=== PATIENT | male | born 1965 | race Caucasian/White ===

== ENCOUNTER 2016-08-13 05:35 | Outpatient (CLI) | payer BC ==
[~2016-08-13] VITALS: Ht 180.3 cm; Wt 74.8 kg
[~2016-08-13 05:35] MED LIST: PARO25TA15 PO
--- OUTSIDE RECORDS SUMMARY | 2016-08-13 05:38 | XMS REPORT | Continuity of Care Document ---
Author Author [facility] Organization [facility] Address Unknown Phone Unavailable Allergies Active Description Code Type Severity Reaction Onset Reported/Identified Relationship to Patient Clinical Status Yes No Known Drug Allergies [id number] Drug Allergy Unknown N/ A 08/08/2015 Medications Problems Date Dx Coded Attending Type Code Diagnosis Diagnosed By 03/10/2010 Ot V25.8 08/09/2015 TINA MULLINS MD Ot Z01.818 08/09/2015 TINA MULLINS MD Ot Z12.11 08/09/2015 TINA MULLINS MD Ot Z80.0 08/10/2015 TINA MULLINS MD Ot D12.5 BENIGN NEOPLASM OF SIGMOID COLON 08/10/2015 TINA MULLINS MD Ot K57.30 DVRTCLOS OF LG INT W/O PERFORATION OR AB 08/10/2015 TINA MULLINS MD Ot Z12.11 ENCOUNTER FOR SCREENING FOR MALIGNANT NE 08/10/2015 TINA MULLINS MD Ot Z80.0 FAMILY HISTORY OF MALIGNANT NEOPLASM OF 08/13/2015 TINA MULLINS MD Ot D12.5 08/13/2015 TINA MULLINS MD Ot K57.30 08/13/2015 TINA MULLINS MD Ot Z12.11 08/13/2015 TINA MULLINS MD Ot Z80.0 08/26/2015 LILA FONTENOT MD, Ot K57.90 DVRTCLOS OF INTEST, PART UNSP, W/O PERF 08/26/2015 LILA FONTENOT MD Ot R10.32 LEFT LOWER QUADRANT PAIN 08/28/2015 LILA FONTENOT MD, Ot K57.90 08/28/2015 LILA FONTENOT MD, Ot R10.32 Procedures Results Encounters ACCT No. Visit Date/Time Discharge Status Pt. Type Provider Facility Loc./Unit Complaint [id number] 08/26/2015 05:14:00 2015 07:55:00 DIS Emergency LILA FONTENOT MD [facility] ER LT SIDE ABD PAIN [id number] 08/10/2015 09:06:00 2015 12:30:00 DIS Outpatient TINA MULLINS MD [facility] SDC SCREENING [id number] 08/08/2015 05:52:00 2015 13:49:00 DIS Outpatient TINA MULLINS MD [facility] PREOP [id number] 08/13/2016 05:35:00 ACT Outpatient TINA MULLINS MD [facility] PREOP HISTORY POLYPS [id number] 12/13/2009 12:30:00 Document Registration
[2016-08-13] MEDS ORDERED: PARO-49 PO (14:16)
== END 2016-08-13 14:19 ==
LOC: PREOP 05:35
PROVIDERS: ATTEND Internal Medicine
DX: Z01.818 Encounter for other preprocedural examination (principal); Z12.11 Encounter for screening for malignant neoplasm of colon; Z80.0 Family history of malignant neoplasm of digestive organs; Z86.010 Personal history of colon polyps

== ENCOUNTER 2016-08-15 07:10 | Day surgery (SDC) | payer BC ==
[~2016-08-15] VITALS: Ht 180.3 cm; Wt 74.8 kg
[~2016-08-15 07:10] MED LIST changes: +PARO-49 PO
--- OUTSIDE RECORDS SUMMARY | 2016-08-15 07:15 | XMS REPORT | Continuity of Care Document ---
Author Author [facility] Organization [facility] Address Unknown Phone Unavailable Allergies Active Description Code Type Severity Reaction Onset Reported/Identified Relationship to Patient Clinical Status Yes No Known Drug Allergies [id number] Drug Allergy Unknown N/ A 08/13/2016 Medications Problems Date Dx Coded Attending Type [...] MULLINS MD Ot Z80.0 08/26/2015 LILA FONTENOT MD Ot K57.90 DVRTCLOS OF INTEST, PART UNSP, W/O PERF 08/26/2015 LILA FONTENOT MD Ot R10.32 LEFT LOWER QUADRANT PAIN 08/28/2015 LILA FONTENOT MD Ot K57.90 08/28/2015 LILA FONTENOT MD Ot R10.32 08/14/2016 TINA MULLINS MD Ot Z01.818 ENCOUNTER FOR OTHER PREPROCEDURAL EXAMIN 08/14/2016 TINA MULLINS MD Ot Z12.11 ENCOUNTER FOR SCREENING FOR MALIGNANT NE 08/14/2016 TINA MULLINS MD Ot Z80.0 FAMILY HISTORY OF MALIGNANT NEOPLASM OF 08/14/2016 TINA MULLINS MD Ot Z86.010 PERSONAL HISTORY OF COLONIC POLYPS Procedures Results Encounters ACCT No. Visit Date/Time Discharge Status Pt. Type Provider Facility Loc./Unit Complaint [id number] 08/13/2016 05:35:00 2016 14:19:00 DIS Outpatient TINA MULLINS MD [facility] PREOP HISTORY POLYPS [id number] 08/26/2015 05:14:00 2015 07:55:00 DIS Emergency LILA FONTENOT MD [facility] ER LT SIDE ABD PAIN [id number] 08/10/2015 09:06:00 2015 12:30:00 DIS Outpatient TINA MULLINS MD [facility] SDC SCREENING [id number] 08/08/2015 05:52:00 2015 13:49:00 DIS Outpatient TINA MULLINS MD [facility] PREOP [id number] 08/15/2016 07:10:00 ACT Outpatient TINA MULLINS MD [facility] ENDO SCREENING/HISTORY OF POLYPS [id number] 12/13/2009 12:30:00 Document Registration
--- OUTSIDE RECORDS SUMMARY | 2016-08-15 07:15 | XMS REPORT | Continuity of Care Document ---
Author Author [facility] Organization [facility] Address Unknown Phone Unavailable Allergies Active Description Code Type Severity Reaction Onset Reported/Identified Relationship to Patient Clinical Status Yes No Known Drug Allergies [id number] Drug Allergy Unknown N/ A 08/13/2016 Medications [...] Status Pt. Type Provider Facility Loc./Unit Complaint [id number] 08/13/2016 05:35:00 2016 14:19:00 DIS Outpatient TINA MULLINS MD [facility] PREOP HISTORY POLYPS [id number] 08/26/2015 05:14:00 2015 07:55:00 DIS Emergency LILA FONTENOT MD [facility] ER LT SIDE ABD PAIN [id number] 08/10/2015 09:06:00 2015 12:30:00 DIS Outpatient TINA MULLINS MD [facility] SDC SCREENING [id number] 08/08/2015 05:52:00 2015 13:49:00 DIS Outpatient TINA MULLINS MD [facility] PREOP [id number] 08/15/2016 07:10:00 ACT Outpatient TINA MULLINS MD [facility] ENDO SCREENING/HISTORY OF POLYPS [id number] 12/13/2009 12:30:00 Document Registration
--- NOTE | 2016-08-15 07:18 | HISTORY AND PHYSICAL ---
DATE OF ADMISSION: 08/15/2016 DICTATING PHYSICIAN: Dr. Rodrigez Mr. Molina is a 52-year-old white male undergoing surveillance colonoscopy due to a past history of colon polyps and a family history for early colon cancer. His sister was diagnosed with colon cancer at age of 47 and unfortunately has rather advanced metastatic disease. Marcelo underwent colonoscopy one year ago and had 4 polyps removed, 2 of which were tubular adenomas, 1 removed from the hepatic flexure and the other one was removed from the distal sigmoid colon. Two hyperplastic polyps were removed; 1 from the distal sigmoid colon the other one from the rectum. Though he reports that he has been feeling well, he does voice, that evening prior to this colonoscopy and prior to his sister diagnosis, he did have a phobia about cancer as part of his generalized anxiety. He does not feel that he has been quite as well on Paxil CR generic, switched mandated by his insurance. He has not had any overt panic attacks, but does have more ruminations about cancerphobia aggravated by his sister's battles with her cancer. He has not had any overt panic attacks. PHYSICAL EXAMINATION: Reveals a white male, appears to be in no acute distress. His weight is up 2.8 pounds. I should add that he has noted no blood in his stool. He has had no abdominal pain or change in bowel habits. Blood pressure was 96/76. CHEST: Clear. CV: Revealed a regular rate and rhythm without murmur, S3 or S4. ABDOMEN: Soft, supple without masses, organomegaly or tenderness. EXTREMITIES: Reveal no cyanosis, clubbing, or edema. ASSESSMENT: 1. Due to a past history of adenomatous colonic polyps with family history for early colon cancer in first degree relative, his sister, he is set-up for repeat surveillance colonoscopy for prevention on 08/15/2016. Prep instructions with split dose W[employer]ins Prep kit were given. Questions were answered. 2. Generalized anxiety. If repeat colonoscopy is not enough to reassure him and he is still having cancerphobia issues, he is to call and I will advise increasing his Paxil CR from 25 mg to 40 mg. 3. Lastly, he does have a small verrucous nevus in the left nares, that was asymptomatic, the patient was reassured. Will see him back in 6 months. Job ID: [id number] Dictated Date: 07/23/2016 16:07:00 Ink Grinder Date: 07/24/2016 08:17:19/brenda
[2016-08-15] MEDS ORDERED: 1/2 NS IV SOLUTION 1,000 ML IV ONE (07:19)
[2016-08-15] MEDS ORDERED: 1/2 NS IV SOLUTION 1,000 ML IV STA (07:24)
[2016-08-15] MEDS ORDERED: NALOXONE 0.4 MG/ML 1 ML (NARCAN) VIAL IVP PRN (07:30)
[2016-08-15] MEDS ORDERED: MIDAZOLAM 2 MG/2 ML (VERSED) VIAL IVP PRN (07:30)
[2016-08-15] MEDS ORDERED: LIDOCAINE JELLY 2% (XYLOCAINE) 5 ML TUBE MM PRN (07:30)
[2016-08-15] MEDS ORDERED: FLUMAZENIL (ROMAZICON) 0.1 MG/ML 5 ML VIAL INJ PRN (07:30)
--- NOTE | 2016-08-15 07:41 | Pre-Op Note & Conscious Sedat ---
Pre-Operative Progress Note H&P Reviewed The H&P was reviewed, patient examined and no changes noted. Date H&P Reviewed: Aug 15, 2016 Time H&P Reviewed: 07:41 Conscious Sedation Pre-Proced ASA Class: 1 Airway Mallampati Classification: ([place] appropriate class) I. II. III, IV Lungs Heart ASA score ASA 1: a normal healthy patient ASA 2: a patient with a mild systemic disease (mid diabetes, controlled hypertension, obesity ASA 3: a patient with a severe systemic disease that limits activity (angina , COPD, prior Myocardial infarction) ASA 4: a patient with an incapacitating disease that is a constant threat to life (CHF, renal failure) ASA 5: a moribund patient not expected to survive 24 hrs. (ruptured aneurysm) ASA 6: a declared brain patient whose organs are being harvested. For emergent operations, add the letter E after the classification Grade 2 Sedation Plan: Analgesia, Amnesia, Plan communicated to team members, Discussed options with patient/fam, Discussed risks with patient/fam Note The patient is an appropriate candidate to undergo the planned procedure, sedation, and anesthesia. The patient immediately re-assessed prior to indication. TINA MULLINS MD Aug 15, 2016 07:41
[2016-08-15] MEDS ORDERED: fentaNYL INJECTION 100 MCG/2 ML AMP ONE (07:53)
[2016-08-15] MEDS ORDERED: LIDOCAINE JELLY 2% (XYLOCAINE) 5 ML TUBE ONE (07:53)
[2016-08-15] MEDS ORDERED: MIDAZOLAM 2 MG/2 ML (VERSED) VIAL ONE ×2 (07:53)
[2016-08-15] MEDS: fentaNYL INJECTION 100 MCG/2 ML AMP IVP PRN ×2 (07:55→08:10)
[2016-08-15 08:04] VITALS: BP 123/89
[2016-08-15] MEDS ORDERED: ONDANSETRON 4 MG/2 ML (SDV) Z0FRAN ONE (08:29)
[2016-08-15 09:00] VITALS: BP 101/70
[2016-08-15] MEDS ORDERED: ATROPINE INJ 0.4 MG/ML SDV IV ONE (09:00)
[2016-08-15 09:30] VITALS: BP 100/80
[2016-08-15 09:48] VITALS: BP 100/80
--- NOTE | 2016-08-15 11:24 | PROCEDURE REPORT ---
PROCEDURE PHYSICIAN: TINA MULLINS DATE OF PROCEDURE: 08/15/2016 COLONOSCOPY SUMMARY: INDICATION FOR THE PROCEDURE: History of colon polyps, family history of colon cancer, index case being his sister diagnosed in her 40s. PROCEDURE: The patient is placed in the left lateral decubitus position. The colonoscope was inserted in the rectum and under visualization advanced to the cecum. The cecum identified by the identification of the ileocecal valve and appendiceal orifice. Photographic documentation was obtained. Careful inspection was made as the colonoscope withdrawn. Quality of the prep was good. Prior to undergoing colonoscopy, digital rectal evaluation was performed. Anal sphincter tone was normal and the perianal reflex was intact. The prostate was unremarkable to digital inspection and was normal in size. No abnormalities were noted to digital inspection of the anal canal or distal rectal vault. The rectum was unremarkable. One diminutive proximal sigmoid colonic polyp was present; it was biopsied and ablated and submitted for histopathology. One diminutive 2 x 3 mm sessile polyp was present. at the hepatic flexure. It was biopsied and ablated, and submitted for histopathology. The remainder of the colonoscopy was unremarkable. ASSESSMENT: 2 diminutive polyps were removed today; one from the proximal sigmoid colon and one from the hepatic flexure. No other significant abnormalities were noted on today's colonoscopy to the cecum. We will wait on histopathology report before advocating consideration for future surveillance colonoscopy. Job ID: [id number] Dictated Date: 08/15/2016 10:19:42 Soil Checker Date: 08/15/2016 11:18:53 / raysa MO
== END 2016-08-15 09:53 | disposition home or self-care (01) ==
LOC: ENDO 07:10
PROVIDERS: ATTEND Internal Medicine
DX: Z12.11 Encounter for screening for malignant neoplasm of colon (principal); D12.3 Benign neoplasm of transverse colon; D12.5 Benign neoplasm of sigmoid colon; Z80.0 Family history of malignant neoplasm of digestive organs; Z86.010 Personal history of colon polyps
CPT/HCPCS: 88305

== ENCOUNTER 2018-01-29 08:03 | Day surgery (SDC) | payer BC ==
[~2018-01-29] VITALS: Ht 180.3 cm; Wt 79.4 kg
[2018-01-29] MEDS ORDERED: D5 LR IV SOLUTION 1,000 ML IV STA (08:18)
[2018-01-29] MEDS ORDERED: LIDOCAINE JELLY 2% (XYLOCAINE) 5 ML TUBE MM PRN (08:30)
[2018-01-29] MEDS ORDERED: MIDAZOLAM 2 MG/2 ML (VERSED) VIAL IVP ONE (08:30)
[2018-01-29] MEDS ORDERED: fentaNYL INJECTION 100 MCG/2 ML AMP IVP ONE (08:30)
[2018-01-29 08:37] VITALS: BP 108/90
[2018-01-29] MEDS ORDERED: ROSU10TA PO (08:40)
[2018-01-29] MEDS ORDERED: LIDOCAINE JELLY 2% (XYLOCAINE) 5 ML TUBE ONE (09:02)
[2018-01-29] MEDS ORDERED: fentaNYL INJECTION 100 MCG/2 ML AMP ONE ×2 (09:02)
[2018-01-29] MEDS ORDERED: MIDAZOLAM 2 MG/2 ML (VERSED) VIAL ONE ×3 (09:03→14:42)
--- NOTE | 2018-01-29 09:06 | Pre-Op Note & Conscious Sedat ---
Pre-Operative Progress Note H&P Reviewed The H&P was reviewed, patient examined and no changes noted. Date H&P Reviewed: Jan 29, 2018 Time H&P Reviewed: 08:32 Conscious Sedation Pre-Proced ASA Class: 2 Airway Mallampati Classification: ([place] appropriate class) I. II. III, IV Lungs Heart ASA score ASA 1: a normal healthy patient ASA 2: a patient with a mild systemic disease (mid diabetes, controlled hypertension, obesity ASA 3: a patient with a severe systemic disease that limits activity (angina , COPD, prior Myocardial infarction) ASA 4: a patient with an incapacitating disease that is a constant threat to life (CHF, renal failure) ASA 5: a moribund patient not expected to survive 24 hrs. (ruptured aneurysm) ASA 6: a declared brain patient whose organs are being harvested. For emergent operations, add the letter E after the classification Grade 2 Sedation Plan: Analgesia, Amnesia, Plan communicated to team members, Discussed options with patient/fam, Discussed risks with patient/fam Note The patient is an appropriate candidate to undergo the planned procedure, sedation, and anesthesia. The patient immediately re-assessed prior to indication. TINA MULLINS MD Jan 29, 2018 09:06
[2018-01-29 10:00] VITALS: BP 108/90
[2018-01-29 10:30] VITALS: BP 121/81
[2018-01-29 10:40] VITALS: BP 121/81
--- NOTE | 2018-01-29 19:30 | OPERATIVE REPORT ---
DATE OF SERVICE: COLONOSCOPY SUMMARY INDICATION FOR PROCEDURE: Surveillance colonoscopy due to past history of colon polyps and a family history for colon cancer, index case being his sister diagnosed at either 47 or 48 years of age. DESCRIPTION OF PROCEDURE: The patient was placed in left lateral decubitus position. Prior to having colonoscopy, a digital rectal evaluation was performed. Anal sphincter tone was normal. Perianal reflexes intact. Prostate is small in size, anodular and nontender to digital inspection. No abnormalities were noted on digital inspection of the anal canal or distal rectal vault. The colonoscope was then inserted into the rectum and under direct visualization advanced to cecum. Cecum was identified by identification of the ileocecal valve and cecal strap. Photographic documentation was obtained. A careful inspection was made as the colonoscope withdrawn. The patient tolerated the procedure well. FINDINGS: There was no evidence for internal or external hemorrhoids and the rectum was unremarkable. Several small sigmoid diverticula were present with no other sigmoid colonic abnormalities being noted. The descending colon, splenic flexure and transverse colon were unremarkable. One diminutive 3 mm sessile polyp was noted at the hepatic flexure. It was photographed and biopsied and ablated and submitted for histopathology. The ascending colon and cecum of the colon were unremarkable. ASSESSMENT: 1. Mild diverticular disease confined to the sigmoid colon was present. There was no evidence for diverticulitis. 2. One diminutive polyp was removed via hot forceps from the hepatic flexure with no subsequent blood loss. The patient was advised to abstain from aspirin and nonsteroidal medication for the next week with likely surveillance colonoscopy considering family history of early colon cancer in a first degree relative in 2 to 3 years. Job ID: [id number] DocumentID: [id number] Dictated Date: 01/29/2018 12:27:09 Disease Education Specialist Date: 01/29/2018 19:29:38 Dictated By: TINA MULLINS MD
--- NOTE | 2018-02-09 09:22 | HISTORY AND PHYSICAL ---
HISTORY OF PRESENT ILLNESS: The patient is a 53-year-old white male who is seen in the office on 01/20/2018, for evaluation of generalized anxiety disorder as well as hyperlipidemia. His sister was diagnosed with colon cancer at age of 47, has not been doing well as pulmonary metastasis and has been living with disease for 3 years now. He requests another colonoscopy. It has been a year and a half since his last colonoscopy. Three years ago, he had a tubular adenoma of the hepatic flexure. It was partially behind a fold at difficult location to observe for complete polyp ablation on repeat colonoscopy. He year and half ago, did not see evidence for it. It is not unreasonable considering this in his family history to proceed with repeat colonoscopy, which he is being set up for 01/29/2018. He has noted no blood in the stool. Denies abdominal pain or change in bowel habit. He has been compliant with rosuvastatin 10 mg daily and we reviewed his blood work revealing total cholesterol down significantly to 137 and HDL stable at 38 with an LDL of 63 and that her triglyceride level of 180. The remainder of his chemistry panel was normal, and his PSA was stable at 1.77. He had some concerns over some skin lesions that were reviewed below. PHYSICAL EXAMINATION: GENERAL: Reveals a well-appearing white male in no acute distress. HEENT: He is a Mallampati class 2 oropharyngeal configuration without evidence for erythema. NECK: Revealed no JVD, adenopathy or bruits. CHEST: Clear to auscultation. CARDIOVASCULAR: Reveals a regular rate and rhythm without murmur, S3 or S4. VITAL SIGNS: Blood pressure 108/80, weight was up 5 pounds over the past six months. ABDOMEN: Soft, supple without mass, organomegaly, or tenderness. EXTREMITIES: Reveal no cyanosis, clubbing or edema. RECTAL: Deferred at the time of colonoscopy. ASSESSMENT AND PLAN: 1. Generalized anxiety disorder, relatively stable. 2. Situational anxiety, aggravated by sister's terminal colon cancer. The patient is set up for colonoscopy on the . Prep instructions and Suprep kit were given and questions were answered. 3. Past history of colon polyps. See above. 4. Hyperlipidemia, doing well on rosuvastatin, continue 10 mg daily with return in 6 months with repeat chemistry and lipid panel. Job ID: [id number] DocumentID: [id number] Dictated Date: 01/20/2018 15:08:40 Mergers And Acquisitions Banker Date: 01/20/2018 15:28:10 Dictated By: TINA MULLINS MD <Dictated by TINA MULLINS MD> <Electronically signed by TINA MULLINS MD> 01/20/18 1546
== END 2018-01-29 10:40 | disposition home or self-care (01) ==
LOC: ENDO 08:03
PROVIDERS: ATTEND Internal Medicine
DX: Z09 Encounter for follow-up examination after completed treatment for conditions other than malignant neoplasm (principal); D12.3 Benign neoplasm of transverse colon; K57.30 Diverticulosis of large intestine without perforation or abscess without bleeding; Z86.010 Personal history of colon polyps; Z80.0 Family history of malignant neoplasm of digestive organs; Z79.82 Long term (current) use of aspirin
CPT/HCPCS: 88305

== ENCOUNTER 2020-04-03 05:36 | Outpatient (RCR) | payer BC ==
--- NOTE | 2020-03-30 11:56 | HISTORY AND PHYSICAL ---
DATE OF SERVICE: COLONOSCOPY HISTORY AND PHYSICAL HISTORY OF PRESENT ILLNESS: The patient is a 55-year-old white male seen for wellness evaluation in the office on 03/29/2020. He last underwent colonoscopy a little over 2 years ago and had a tubular adenoma removed from the hepatic flexure. He is deemed to be of higher than average risk as his sister was diagnosed with colon cancer at the age of 47. He was here for a yearly wellness evaluation. Past medical history is significant for generalized anxiety with social phobia. He reports that this has been under good control on SSRI therapy in the form of Paxil. He does report being phobic about cancer and he has been concerned about a nodule on his right patellar tendon that has been present for the past several years. He thinks it had had increased in size; however, we measured unchanged at 4.5 x 4.8 cm compared to one year ago. He denies any associated pain. He reports that he has been feeling well otherwise. He denies abdominal pain, change in bowel habits, bright red blood per rectum or melena. Appetite has been stable. MEDICATIONS ON ADMISSION: Include paroxetine 40 mg daily, rosuvastatin 10 mg at bedtime for familial hyperlipidemia. FAMILY HISTORY: His father at age 58 secondary to heart attack and was a heavy smoker. Mother of breast cancer at the age of 52. His sister was diagnosed with colon cancer at the age of 47 and at the age of 50. SOCIAL HISTORY: He has no past smoking history. No alcohol intake, continues to exercise on a regular basis with healthy predominant whole foods diet. PHYSICAL EXAMINATION: GENERAL: Reveals an overweight weight white male in no acute distress. VITAL SIGNS: Weight 176.4 pounds, BMI 25, blood pressure is 114/80, heart rate 70 and regular. HEENT: Unremarkable. Oral cavity, Mallampati 1 pharyngeal configuration. CHEST: Clear to auscultation. CARDIOVASCULAR: Revealed a regular rate and rhythm without murmur, S3 or S4. ABDOMEN: Soft, supple without mass, organomegaly or tenderness. RECTAL: Deferred at the time of colonoscopy. EXTREMITIES: Reveal no cyanosis, clubbing or edema. SKIN: Evaluation revealed no evidence for neoplasia. The patient reassured about several small telangiectasias on face and arms. The subcutaneous tumor, which appears to be attached to the patellar tendon is present. It is nontender. It is not fixed, firm, but not hard on digital inspection measuring 4.5 x 4.8 cm. This measurement is unchanged from 6 months ago. ASSESSMENT AND PLAN: 1. Essentially unremarkable wellness evaluation. Due to history of tubular adenoma removed from the splenic flexure two years ago and family history for early colon cancer index case being his sister diagnosed at the age of 47. He is being set up for repeat surveillance colonoscopy. 2. 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 History and exam suggest a benign etiology, but it is significant in size, currently measuring 4.5 x 4.8 cm. We will refer to Dr. Parrish for consideration for surgical excision. We will have the patient follow up in 6 months. The patient received a flu shot earlier this month. Job ID: [id number] DocumentID: [id number] Dictated Date: 03/30/2020 10:44:18 Supervisor Water Softener Service Date: 03/30/2020 11:18:27 Dictated By: TINA MULLINS MD MTDD
[~2020-04-03] VITALS: Ht 182.9 cm; Wt 81.8 kg
[~2020-04-03 05:36] MED LIST changes: +ROSU10TA22 PO
== END 2020-04-03 10:07 | disposition home or self-care (01) ==
LOC: PREOP 05:36
PROVIDERS: ATTEND Internal Medicine
DX: Z01.812 Encounter for preprocedural laboratory examination (principal); Z20.828 Contact with and (suspected) exposure to other viral communicable diseases
CPT/HCPCS: 87635

== ENCOUNTER 2020-04-06 08:59 | Day surgery (SDC) | payer BC ==
[~2020-04-06] VITALS: Ht 182.9 cm; Wt 81.8 kg
[2020-04-06] VITALS (11 sets, daily range): BP systolic 116–130; BP diastolic 77–92
[2020-04-06] MEDS ORDERED: ATROPINE INJ 0.4 MG/ML SDV IV ONE ×2 (09:00→10:15)
[2020-04-06] MEDS ORDERED: D5 LR IV SOLUTION 1,000 ML IV ONE (09:04)
[2020-04-06] MEDS ORDERED: D5 LR IV SOLUTION 1,000 ML IV STA (09:07)
--- NOTE | 2020-04-06 09:09 | Pre-Op Note & Conscious Sedat ---
Pre-Operative Progress Note H&P Reviewed The H&P was reviewed, patient examined and no changes noted. Date H&P Reviewed: Apr 06, 2020 Time H&P Reviewed: 09:08 Conscious Sedation Pre-Proced ASA Score 1 For ASA 3 and 4: Consider anesthesia and medical clearance. Also, for patients with a history of failed moderate sedation consider anesthesia. Airway Lungs Heart ASA score ASA 1: a normal healthy patient ASA 2: a patient with a mild systemic disease (mid diabetes, controlled hypertension, obesity ASA 3: a patient with a severe systemic disease that limits activity (angina, COPD, prior Myocardial infarction) ASA 4: a patient with an incapacitating disease that is a constant threat to life (CHF, renal failure) ASA 5: a moribund patient not expected to survive 24 hrs. (ruptured aneurysm) ASA 6: a declared brain- patient whose organs are being harvested. For emergent operations, add the letter E after the classification Mallampati Classification Grade 1 Sedation Plan Analgesia, Amnesia, Plan communicated to team members, Discussed options with patient/fam, Discussed risks with patient/fam The patient is an appropriate candidate to undergo the planned procedure, sedation, and anesthesia. The patient immediately re-assessed prior to indication. TINA MULLINS MD Apr 06, 2020 09:09
[2020-04-06] MEDS ORDERED: fentaNYL INJECTION 100 MCG/2 ML AMP ONE (09:15)
[2020-04-06] MEDS ORDERED: fentaNYL INJECTION 100 MCG/2 ML AMP IVP ONE (09:15)
[2020-04-06] MEDS ORDERED: MIDAZOLAM 5 MG/5 ML (VERSED) VIAL ONE (09:15)
[2020-04-06] MEDS ORDERED: LIDOCAINE JELLY 2% 6 ML SYRINGE MM PRN (09:15)
[2020-04-06] MEDS ORDERED: MIDAZOLAM 5 MG/5 ML (VERSED) VIAL IV ONE (09:15)
[2020-04-06] MEDS ORDERED: LIDOCAINE JELLY 2% 6 ML SYRINGE ONE (09:15)
--- NOTE | 2020-04-06 21:05 | OPERATIVE REPORT ---
DATE OF SERVICE: COLONOSCOPY SUMMARY INDICATION FOR THE PROCEDURE: Surveillance colonoscopy, history of colon polyps, family history of colon cancer. DESCRIPTION OF PROCEDURE: The patient was placed in the left lateral decubitus position. Prior to undergoing colonoscopy, digital rectal evaluation was performed. Anal sphincter tone was normal and the perianal reflexes intact. Digital rectal evaluation was performed. Prostate was normal in size, anodular, nontender to digital inspection. No abnormalities were noted on digital inspection of anal canal or distal rectal vault. The colonoscope was then inserted into the rectum and under direct visualization advanced to cecum. The cecum was identified by identification of ileocecal valve and the appendiceal orifice. Photographic documentation was obtained. Careful inspection was made as the colonoscope was withdrawn. The quality of prep was good. FINDINGS: There was no evidence for internal or external hemorrhoids and the rectum was unremarkable. One or two small proximal sigmoid diverticulum were present without evidence for diverticulitis. No other sigmoid colonic abnormalities were appreciated. The descending colon, splenic flexure and transverse colon as well as hepatic flexure were unremarkable. Present in the distal ascending colon was very early diminutive 2 mm sessile appearing polyp likely remnant from a previous polyp as it appeared to be on top of underlying polypectomy scar. It was photographed and biopsied and ablated. The remainder of the ascending colon and cecum were unremarkable. ASSESSMENT: One diminutive polyp was removed from the distal ascending colon with several small sigmoid diverticulum in the proximal segment being noted. No other abnormalities noted on today's procedure with good quality of prep. We will likely advocate 2-year screening interval considering past polyp history and family history of early colon cancer, index case being his sister diagnosed around the age of 47. Job ID: [id number] DocumentID: [id number] Dictated Date: 04/06/2020 11:00:40 Forester Aide Date: 04/06/2020 21:04:44 Dictated By: TINA MULLINS MD
--- NOTE | 2020-04-09 13:00 | HISTORY AND PHYSICAL ---
DATE OF SERVICE: COLONOSCOPY HISTORY AND PHYSICAL HISTORY OF PRESENT ILLNESS: The patient is a 55-year-old white male seen for wellness evaluation in the office on 03/29/2020. He last underwent colonoscopy a little over 2 years ago and had a tubular adenoma removed from the hepatic flexure. He is deemed to be of higher than average risk as his sister was diagnosed with colon cancer at the age of 47. He was here for a yearly wellness evaluation. Past medical history is significant for generalized anxiety with social phobia. He reports that this has been under good control on SSRI therapy in the form of Paxil. He does report being phobic about cancer and he has been concerned about a nodule on his right patellar tendon that has been present for the past several years. He thinks it had had increased in size; however, we measured unchanged at 4.5 x 4.8 cm compared to one year ago. He denies any associated pain. He reports that he has been feeling well otherwise. He denies abdominal pain, change in bowel habits, bright red blood per rectum or melena. Appetite has been stable. MEDICATIONS ON ADMISSION: Include paroxetine 40 mg daily, rosuvastatin 10 mg at bedtime for familial hyperlipidemia. FAMILY HISTORY: His father at age 58 secondary to heart attack and was a heavy smoker. Mother of breast cancer at the age of 52. His sister was diagnosed with colon cancer at the age of 47 and at the age of 50. SOCIAL HISTORY: He has no past smoking history. No alcohol intake, continues to exercise on a regular basis with healthy predominant whole foods diet. PHYSICAL EXAMINATION: GENERAL: Reveals an overweight weight white male in no acute distress. VITAL SIGNS: Weight 176.4 pounds, BMI 25, blood pressure is 114/80, heart rate 70 and regular. HEENT: Unremarkable. Oral cavity, Mallampati 1 pharyngeal configuration. CHEST: Clear to auscultation. CARDIOVASCULAR: Revealed a regular rate and rhythm without murmur, S3 or S4. ABDOMEN: Soft, supple without mass, organomegaly or tenderness. RECTAL: Deferred at the time of colonoscopy. EXTREMITIES: Reveal no cyanosis, clubbing or edema. SKIN: Evaluation revealed no evidence for neoplasia. The patient reassured about several small telangiectasias on face and arms. The subcutaneous tumor, which appears to be attached to the patellar tendon is present. It is nontender. It is not fixed, firm, but not hard on digital inspection measuring 4.5 x 4.8 cm. This measurement is unchanged from 6 months ago. ASSESSMENT AND PLAN: 1. Essentially unremarkable wellness evaluation. Due to history of tubular adenoma removed from the splenic flexure two years ago and family history for early colon cancer index case being his sister diagnosed at the age of 47. He is being set up for repeat surveillance colonoscopy. 2. 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 History and exam suggest a benign etiology, but it is significant in size, currently measuring 4.5 x 4.8 cm. We will refer to Dr. Parrish for consideration for surgical excision. We will have the patient follow up in 6 months. The patient received a flu shot earlier this month. Job ID: [id number] DocumentID: [id number] Dictated Date: 03/30/2020 10:44:18 First Aid Teacher Date: 03/30/2020 11:18:27 Dictated By: TINA MULLINS MD <Dictated by TINA MULLINS MD> <Electronically signed by TINA MULLINS MD> 04/02/202058 [facility]
== END 2020-04-06 10:50 | disposition home or self-care (01) ==
LOC: ENDO 08:59
PROVIDERS: ATTEND Internal Medicine
DX: Z12.11 Encounter for screening for malignant neoplasm of colon (principal); D12.2 Benign neoplasm of ascending colon; F17.210 Nicotine dependence, cigarettes, uncomplicated; Z86.010 Personal history of colon polyps; Z80.0 Family history of malignant neoplasm of digestive organs; Z80.3 Family history of malignant neoplasm of breast
CPT/HCPCS: 88305

== ENCOUNTER → 2020-10-15 | Outpatient (CLI) | payer BC ==
[~2020-10-15] MED LIST changes: +GADOBUTROL 7.5 MMOL/7.5 ML (GADAVIST) VIAL IV ONE
--- NOTE | 2020-10-15 11:30 | Diagnostic Imaging Report ---
PROCEDURE: MRI right joint lower extremity with and without contrast. TECHNIQUE: Multiplanar, multisequence pre and post contrast-enhanced CARLENE of the right joint lower extremity was accomplished. INDICATION: Patient reports mass anteriorly in right knee for 2 years. FINDINGS: There is a skin marker placed over the area of concern. The marker is just lateral to the patellar ligament. There is a mixed density soft tissue mass which is a predominantly fatty in nature which appears to be well encapsulated. This is 4.3 cm superior to inferior, 3 cm transverse and 1.4 cm in thickness anterior to posterior. This does abut the lateral aspect and extends over the anterior aspect of the infrapatellar ligament. This does show mild heterogeneous enhancement following IV contrast. This does not show characteristics of fluid. There is no invasion of the adjacent bone or ligaments. The overlying skin shows no invasion as well. There is a somewhat comminuted tear involving the posterior horn of the medial meniscus with blunting of the posterior horn. Lateral meniscus appears intact. The cruciate ligaments as well as the medial and lateral collateral ligament complexes appear normal. Quadriceps tendon is normal. Patella is in good alignment with the femoral notch. Trochlea appears normal. There is a loss of articulating cartilage along the medial aspect of the medial femoral condyle with some associated subcortical edema, no definite cortical fracture present though minor insufficiency fracture of the medial femoral condyle cannot be excluded. No significant joint effusion. The surrounding muscles and tendons appear normal. IMPRESSION: There is a somewhat complex predominantly fatty mass which is well encapsulated extending lateral and anterior to the patellar ligament. There is no evidence of direct invasion however this does show some enhancement as well during IV gadolinium. 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 Dictated by: Dictated on workstation # [id number]
== END ==
LOC: RAD 07:56
PROVIDERS: ATTEND Orthopaedic Surgery
DX: M25.861 Other specified joint disorders, right knee (principal)
CPT/HCPCS: 73723

== ENCOUNTER 2022-04-08 05:33 | Outpatient (CLI) | payer BC ==
[~2022-04-08] VITALS: Ht 182.9 cm; Wt 82.3 kg
[~2022-04-08 05:33] MED LIST changes: -GADOBUTROL 7.5 MMOL/7.5 ML (GADAVIST) VIAL IV ONE; +NF-CRES10T PO; -PARO25TA15 PO; +PARO25TA21 PO; -ROSU10TA22 PO
[2022-04-08] MEDS ORDERED: ROSU5TAB PO (09:47)
== END 2022-04-08 12:07 | disposition home or self-care (01) ==
LOC: PREOP 05:33
PROVIDERS: ATTEND Internal Medicine
DX: Z01.818 Encounter for other preprocedural examination (principal)

== ENCOUNTER 2022-04-11 06:56 | Day surgery (SDC) | payer BC ==
--- NOTE | 2022-04-04 16:28 | HISTORY AND PHYSICAL ---
DATE OF SERVICE: 04/11/2022 HISTORY OF PRESENT ILLNESS: The patient is a 57-year-old white male who is seen for followup of family history of colon cancer and a personal history of colon polyps. He last underwent a colonoscopy two years ago and had a tubular adenoma without dysplasia removed from the distal descending colon. His sister was diagnosed in her late 40s with colon cancer and succumb to the disease. He was also here for followup of hypercholesterolemia and social phobia. He has been doing well on paroxetine. In this regard, he still voices usual concerns about moles on his face and requests a skin examination. There is no known family history for melanoma. He has noted no abdominal pain, bright red blood per rectum, melena or change in bowel habits and there has been no change in weight. PHYSICAL EXAMINATION: GENERAL: Reveals a pleasant white male, normal weight, in no acute distress. VITAL SIGNS: Weight 181.4 pounds, blood pressure 120/80. HEENT: Unremarkable. SKIN: Evaluation reveals some lentigines. No suspicious lesions noted. CHEST: Clear. CARDIAC: Reveals regular rate and rhythm without murmur, S3, or S4. ABDOMEN: Soft, supple without mass, organomegaly, or tenderness. RECTAL: Deferred at the time of colonoscopy. ASSESSMENT: 1. The patient is set up for surveillance colonoscopy due to family history of colon cancer and a personal history of colon polyps. Prep instruction was given and questions were answered. 2. Hyperlipidemia, has been under good control on statin therapy. Continue. We did send off a chemistry panel, lipid panel and a PSA that will not be screening. He will follow up in six months with Wellness evaluation scheduled at that time. Job ID: [id number] DocumentID: [id number] Dictated Date: 04/03/2022 16:25:15 Hand Tube Bender Date: 04/03/2022 16:45:00 Dictated By: TINA MULLINS MD
[~2022-04-11] VITALS: Ht 182.9 cm; Wt 82.3 kg
[~2022-04-11 06:56] MED LIST changes: +ROSU5TAB PO
[2022-04-11] MEDS ORDERED: LACTATED RINGERS 1,000 ML IV STA (07:09)
[2022-04-11] MEDS ORDERED: PROPOFOL INJECTION 50 ML IV ONE (07:20)
[2022-04-11] MEDS ORDERED: MIDAZOLAM 2 MG/2 ML (VERSED) VIAL ONE (07:20)
[2022-04-11 07:21] VITALS: BP 123/91
--- NOTE | 2022-04-11 07:49 | Pre-Op Note & Conscious Sedat ---
Pre-Operative Progress Note Date H&P Reviewed: Apr 11, 2022 Time H&P Reviewed: 07:48 History & Physical: H&P Reviewed, Patient Examed, No changes noted Pre-Op Diagnosis: FH of colon cancer Conscious Sedation Pre-Proced ASA Score 2 For ASA 3 and 4: Consider anesthesia and medical clearance. Also, for patients with a history of failed moderate sedation consider anesthesia. Airway Lungs Heart ASA score ASA 1: a normal healthy patient ASA 2: a patient with a mild systemic disease (mid diabetes, controlled hypertension, obesity ASA 3: a patient with a severe systemic disease that limits activity (angina, COPD, prior Myocardial infarction) ASA 4: a patient with an incapacitating disease that is a constant threat to life (CHF, renal failure) ASA 5: a moribund patient not expected to survive 24 hrs. (ruptured aneurysm) ASA 6: a declared brain- patient whose organs are being harvested. For emergent operations, add the letter E after the classification Mallampati Classification Grade 1 Sedation Plan Analgesia, Amnesia, Plan communicated to team members, Discussed options with patient/fam, Discussed risks with patient/fam The patient is an appropriate candidate to undergo the planned procedure, sedation, and anesthesia. The patient immediately re-assessed prior to indication. TINA MULLINS MD Apr 11, 2022 07:49
[2022-04-11 08:20] VITALS: BP 94/63
[2022-04-11 08:25] VITALS: BP 96/65
--- NOTE | 2022-04-11 08:25 | Progress Note-Post Operative ---
Post-Procedure Note Physician (s)/Package Line Relief Operator (s) Physician TINA MULLINS MD Pre-Procedure Diagnosis Pre-Procedure Diagnosis: FH of colon cancer Post-Procedure Diagnosis Post-operative diagnosis: The patient was placed in the left lateral decubitus position. Prior to undergoing colonoscopy digital rectal evaluation was performed. Anal sphincter tone was normal and the perianal reflexes intact. The prostate was unremarkable on digital inspection as was the anal canal and distal rectal vault. The colonoscope was then inserted into the rectum and under direct visualization advanced to the cecum. The cecum was identified by identification of the ileocecal valve and the cecal strap as well as appendiceal orifice. A careful inspection was made as the colonoscope was withdrawn. Photographic documentation was obtained. The quality of the prep was good. Findings: There were no evidence for internal or external hemorrhoids and the rectum was unremarkable. Several small diverticulum without evidence for diverticulitis was noted in the sigmoid colon as well as a sending colon. No evidence for neoplasia was identified and no other abnormalities were noted. Assessment: Mild diverticular disease noted in the sigmoid as well as a sending colon without evidence for diverticulitis. No evidence for neoplasia was identified and no other abnormalities were noted. Considering family history and past history of colon polyps we will advocate repeat surveillance colonoscopy in 3 years. TINA MULLINS MD Apr 11, 2022 08:25
[2022-04-11 08:30] VITALS: BP 98/66
[2022-04-11 08:56] VITALS: BP 109/88
--- NOTE | 2022-04-11 10:48 | Anesthesia-General Post-Op ---
MAC Patient Condition Mental Status/LOC: Same as Preop Cardiovascular: Satisfactory Nausea/Vomiting: Absent Respiratory: Satisfactory Pain: Controlled Complications: Absent Post Op Complications Complications None Follow Up Care/Instructions Patient Instructions None needed. Anesthesiology Discharge Order Discharge Order Patient is doing well, no complaints, stable vital signs, no apparent adverse anesthesia problems. No complications reported per nursing. JM PINEDA CRNA Apr 11, 2022 10:47
== END 2022-04-11 09:13 | disposition home or self-care (01) ==
LOC: ENDO 06:56
PROVIDERS: ATTEND Internal Medicine
DX: Z12.11 Encounter for screening for malignant neoplasm of colon (principal); K57.30 Diverticulosis of large intestine without perforation or abscess without bleeding; Z86.010 Personal history of colon polyps; Z80.0 Family history of malignant neoplasm of digestive organs; E78.00 Pure hypercholesterolemia, unspecified; F40.10 Social phobia, unspecified; Z79.899 Other long term (current) drug therapy